=== PATIENT | male | born 1960 | race Caucasian/White ===

== ENCOUNTER → 2016-12-04 | Outpatient (CLI) | payer OTHER ==
[~2016-12-04] MED LIST: AZEL30SP NAE; DOSTINEX PO; FLUT0.0529 NAE; GABA-112 PO; HYCUDL5 PO; SNG10 PO
[2016-12-04 17:23] LABS: ALT/SGPT 46 U/L (12-78); AST/SGOT 26 U/L (15-37); BLOOD UREA NITROGEN 15 mg/dl (7-18); BUN/CREATININE RATIO 14.8 (10-20); CARBON DIOXIDE 29 mmol/L (21-32); CHLORIDE 104 mmol/L (98-107); GLUCOSE 90 mg/dl (70-99); POTASSIUM 4.3 mmol/L (3.5-5.1); SODIUM 140 mmol/L (136-145)
[2016-12-04 17:31] LABS: ALB/GLOB RATIO 1.2 (0.9-2); ALKALINE PHOSPHATASE 51 U/L (45-117); CHOLESTEROL 155 mg/dl (0-200); CHOLESTEROL/HDL RATIO 3.5; HDL CHOLESTEROL 44 mg/dl; LDL CHOLESTEROL CALCULATED 88 mg/dl; TRIGLYCERIDES 115 mg/dl (0-150); VERY LOW DENSITY LIPOPROT CALC 23 mg/dl
== END | disposition home or self-care (01) ==
LOC: C.LABBC 12:22
PROVIDERS: ATTEND Internal Medicine
DX: Z00.00 Encounter for general adult medical examination without abnormal findings (principal); D35.2 Benign neoplasm of pituitary gland; R73.9 Hyperglycemia, unspecified; E78.5 Hyperlipidemia, unspecified

== ENCOUNTER → 2017-01-10 | Outpatient (CLI) | payer OTHER ==
--- NOTE | 2017-01-10 10:10 | DIAGNOSTIC IMAGING REPORT ---
LUMBAR SPINE 5 VIEWS CLINICAL HISTORY: Low back pain of several months duration. FINDINGS: 5 views of the lumbar spine are correlated with abdominal CT dated 02/25/2011. The skeletal structures are well mineralized. There is no radiographic evidence of fracture or malalignment. Vertebral body height and alignment are maintained. Tiny anterior osteophytes are noted at L4-L5. The transverse and spinous processes are intact. There is no evidence of spondylolysis. The intervertebral disc spaces are well-maintained. The visualized bony pelvis appears intact. Enthesophytes arise from the anterior superior iliac spine bilaterally. There is a nonobstructed abdominal bowel gas pattern. Cholecystectomy clips are noted. IMPRESSION: Unremarkable radiographic evaluation of the lumbosacral spine. Electronically signed by: Ermias Nunn M.D. 01/10/2017 10:09 AM Dictated Date/Time: 01/10/2017 10:07 AM
== END | disposition home or self-care (01) ==
LOC: C.RADBC 09:40
PROVIDERS: ATTEND Internal Medicine
DX: M54.5 Low back pain (principal)

== ENCOUNTER → 2017-01-15 | Outpatient (CLI) | payer OTHER ==
--- NOTE | 2017-01-15 17:59 | DIAGNOSTIC IMAGING REPORT ---
MRI LUMBAR SPINE W/O CONTRAST CLINICAL HISTORY: R26.9 M54.5 M54.16 R29.2 M25.551 LOW BACK PAIN WITH RIGHT LEG RADICULOPATHY. TECHNIQUE: Sagittal and axial T1, T2 and STIR images were obtained. COMPARISON STUDY: Conventional radiographic study the lumbar spine dated 01/10/2017 OBSERVATIONS: The vertebral bodies and posterior elements appear intact. There is no abnormal bony signal present to suggest a marrow replacement process. L1-2: No disc protrusions or extrusions. No evidence of spinal canal or neural foraminal compromise. L2-3: No disc protrusions or extrusions. No evidence of spinal canal or neural foraminal compromise. L3-4: No disc protrusions or extrusions. No evidence of spinal canal or neural foraminal compromise. L4-5: No disc protrusions or extrusions. No evidence of spinal canal or neural foraminal compromise. L5-S1: There is a tiny broad-based central disc protrusion. There is no significant thecal sac distortion. There is no significant spinal or foraminal stenosis. The conus medullaris and cauda equina appear normal. There is an 11 mm right-sided Tarlov cyst at the S2 level. IMPRESSION: 1. Tiny broad-based central disc protrusion at the L5-S1 level. 2. 11 mm right-sided Tarlov cyst at the S2 level. Electronically signed by: Flo Dominique M.D. 01/15/2017 5:58 PM Dictated Date/Time: 01/15/2017 5:54 PM
== END | disposition home or self-care (01) ==
LOC: C.MRIBC 16:37
PROVIDERS: ATTEND Internal Medicine
DX: M51.27 Other intervertebral disc displacement, lumbosacral region (principal)

== ENCOUNTER → 2017-02-03 | Outpatient (CLI) | payer OTHER ==
[2017-02-03 18:07] LABS: CREATININE 0.93 mg/dl (0.60-1.40); URIC ACID 4.1 mg/dl (2.6-7.2)
[2017-02-03 18:13] LABS: PREALBUMIN 37.6 mg/dl (20-40)
[2017-02-03 18:31] LABS: LYME DISEASE AB IGG NEG (NEG); LYME DISEASE AB IGM NEG (NEG)
[2017-02-05 18:35] LABS: ALBUMIN 4.4 G/DL (3.8-4.8); LEAD BLOOD LESS THAN 1 MCG/DL (0-9); TOTAL PROTEIN 6.9 G/DL (6.2-8.3)
== END | disposition home or self-care (01) ==
LOC: C.LAB1850 17:00
PROVIDERS: ATTEND Psychiatry & Neurology Neurology
DX: G12.21 Amyotrophic lateral sclerosis (principal)

== ENCOUNTER 2017-02-08 03:18 | Emergency (ER) | payer OTHER ==
[~2017-02-08] VITALS: Ht 190.5 cm; Wt 85.0 kg
[~2017-02-08 03:18] MED LIST changes: -GABA-112 PO
[2017-02-08 03:26] VITALS: TEMP 36.7; Ht 190.5 cm; Wt 85.0 kg
[2017-02-08 03:36] VITALS: O2SAT 98
[2017-02-08] MEDS ORDERED: SODIUM CHLORIDE 0.9% 1000ML 1,000 ML IV STA (03:52)
[2017-02-08] MEDS ORDERED: LORAZEPAM INJ 0.5 MG in SYRINGE 0.25 ML IV STA (03:54)
[2017-02-08 04:01] LABS: BASO % 0.6 %; BASO ABS # 0.04 K/uL (0-0.2); COMPLETE YES; EOS % 1.3 %; HEMATOCRIT 38.4 % (42-52); IG% 0.1 %; LYMPH % 49.3 %; LYMPH ABS # 3.34 K/uL (1.2-3.4); MEAN CELL VOLUME 87.1 fL (80-100); MEAN CORPUSCULAR HEMOGLOBIN 31.3 pg (25-34); MEAN CORPUSCULAR HGB CONC 35.9 g/dl (32-36); MEAN PLATELET VOLUME 9.2 fL (7.4-10.4); MONO % 7.1 %; NEUT % 41.6 %; PLATELET COUNT 248 K/uL (130-400); RED BLOOD COUNT 4.41 M/uL (4.7-6.1); WHITE BLOOD COUNT 6.77 K/uL (4.8-10.8)
[2017-02-08] MEDS ORDERED: LORAZEPAM 2 MG/ML 1 ML VIAL ONE (04:05)
[2017-02-08 04:27] LABS: CALCIUM 8.9 mg/dl (8.5-10.1); MAGNESIUM 2.1 mg/dl (1.8-2.4); POTASSIUM 3.7 mmol/L (3.5-5.1)
[2017-02-08 04:38] LABS: ALB/GLOB RATIO 1.1 (0.9-2); CKMB/CK RATIO 2.4 (0-3.0); THYROID STIMULATING HORMONE 1.05 uIu/ml (0.300-4.500)
--- NOTE | 2017-02-08 05:21 | EMERGENCY ROOM VISIT NOTE ---
History First contact with patient: 03:39 Chief Complaint: OTHER COMPLAINT Stated Complaint: DRUG INTERACTION History of Present Illness The patient is a 56 year old male who presents to the Emergency Department by private vehicle with his for evaluation of a possible drug interaction. He reports that he has been recently placed on multiple different medications as he was diagnosed with ALS 10 days ago. He has been placed on gabapentin most recently. He has been using the medication with minimal relief of symptoms. The patient admits to using cannabis oil this evening at approximately 10 PM. He reports that he ate a small amount on a cracker. He has felt restless as well as a dry mouth and anxious since taking the cannabis. He reports no history of drug abuse in the past. He is never used marijuana previously. He denies the pain. He rates his current discomfort as 0/10. He denies any headaches, chest pain, palpitations, short of breath with nausea, vomiting, or abdominal pain. He denies any other substance use. Review of Systems A complete 10-point Review of Systems was discussed with the patient, with pertinent positives and negatives listed in the History of Present Illness. All remaining Review of Systems questions can be considered negative unless otherwise specified. Past Medical/Surgical History Surgical Problems: (1) Hx of appendectomy Family History Family history was reviewed; no changes noted. Social History Smoking Status: Never Smoker Smokeless Tobacco Use: No Alcohol Use: none Drug Use: none Marital Status: Occupation Status: employed Current/Historical Medications Scheduled Gabapentin (Neurontin), 100 MG PO HS [Dostinex], 0.25 MG PO 2XWK Allergies Coded Allergies: No Known Allergies (Unverified , 10/01/04) Physical Exam Vital Signs Date Time Temp Pulse Resp B/P Pulse Ox O2 Delivery O2 Flow Rate FiO2 02/08/17 05:30 68 19 132/87 96 02/08/17 05:00 137/88 02/08/17 04:30 142/95 02/08/17 04:18 62 13 94 02/08/17 04:07 138/92 02/08/17 03:43 63 02/08/17 03:36 98 Room Air 02/08/17 03:26 36.7 77 18 144/89 93 Room Air Pain Rating (0-10): 0 Physical Exam VITAL SIGNS - Vital signs and nursing notes were reviewed. GENERAL - 56-year-old male appearing his stated age who is in no acute distress. Communicates well with provider and answers questions appropriately. HEAD - NC/AT. EYES - PERRL with EOMI bilaterally. Sclera anicteric. Palpebral conjunctiva pink and moist with no injection noted. EARS - No deformities of external structures noted on gross examination bilaterally. No pain elicited with palpation of the tragus bilaterally. External auditory canals without discharge or otorrhea. Tympanic membranes pearly munoz without retraction or bulging. NOSE - Midline and without cyanosis. No epistaxis or purulent drainage noted. Septum midline without deviation or septal hematoma noted. MOUTH/OROPHARYNX - Without perioral cyanosis. Buccal mucosa pink and moist and without leukoplakia. Tongue midline with equal elevation of palate bilaterally. No tonsillar hypertrophy, erythema, or exudates noted. Good dentition noted. NECK - Neck with FROM. Supple to palpation. LUNGS - Chest wall symmetric without accessory muscle use, intercostals retractions, or central cyanosis. Normal vesicular breath sounds CTA B/L. No wheezes, rales, or rhonchi appreciated. CARDIAC - RRR with S1/S2. No murmur, rubs, or gallops appreciated. No reproducible tenderness to palpation appreciated over the anterior chest wall. ABDOMEN - Abdominal contour flat and without pulsations or visible masses. BS normoactive all four quadrants. No tenderness, palpable masses, hepatosplenomegaly, or ascites noted. EXTREMITIES - No clubbing or peripheral cyanosis. No pretibial edema present. NEUROLOGIC - Cranial nerves II through XII grossly intact. Sensory intact to light touch throughout. PSYCH - A&Ox3 and cooperates fully with examiner. Pt is very pleasant and interacts well with examiner. Medical Decision & Procedures ER Provider Diagnostic Interpretation: Chest x-ray was obtained and reviewed by myself and my attending physician. No acute cardiopulmonary processes appreciated per my interpretation. Radiologist' s impression unavailable at the time of dictation. Laboratory Results 02/08/17 03:42 Red Blood Count 4.41, Mean Corpuscular Volume 87.1, Mean Corpuscular Hemoglobin 31.3, Mean Corpuscular Hemoglobin Concent 35.9, Mean Platelet Volume 9.2, Neutrophils (%) (Auto) 41.6, Lymphocytes (%) (Auto) 49.3, Monocytes (%) (Auto) 7.1, Eosinophils (%) (Auto) 1.3, Basophils (%) (Auto) 0.6, Neutrophils # (Auto) 2.81, Lymphocytes # (Auto) 3.34, Monocytes # (Auto) 0.48, Eosinophils # (Auto) 0.09, Basophils # (Auto) 0.04 02/08/17 03:42 Test 02/08/17 03:42 02/08/17 03:56 White Blood Count 6.77 K/uL (4.8-10.8) Red Blood Count 4.41 M/uL (4.7-6.1) Hemoglobin 13.8 g/dL (14.0-18.0) Hematocrit 38.4 % (42-52) Mean Corpuscular Volume 87.1 fL (80-100) Mean Corpuscular Hemoglobin 31.3 pg (25-34) Mean Corpuscular Hemoglobin Concent 35.9 g/dl (32-36) Platelet Count 248 K/uL (130-400) Mean Platelet Volume 9.2 fL (7.4-10.4) Neutrophils (%) (Auto) 41.6 % Lymphocytes (%) (Auto) 49.3 % Monocytes (%) (Auto) 7.1 % Eosinophils (%) (Auto) 1.3 % Basophils (%) (Auto) 0.6 % Neutrophils # (Auto) 2.81 K/uL (1.4-6.5) Lymphocytes # (Auto) 3.34 K/uL (1.2-3.4) Monocytes # (Auto) 0.48 K/uL (0.11-0.59) Eosinophils # (Auto) 0.09 K/uL (0-0.5) Basophils # (Auto) 0.04 K/uL (0-0.2) RDW Standard Deviation 40.4 fL (36.4-46.3) RDW Coefficient of Variation 12.5 % (11.5-14.5) Immature Granulocyte % (Auto) 0.1 % Immature Granulocyte # (Auto) 0.01 K/uL (0.00-0.02) Anion Gap 7.0 mmol/L (3-11) Est Creatinine Clear Calc Drug Dose 98.6 ml/min Estimated GFR () 97.1 Estimated GFR (Non- 83.8 BUN/Creatinine Ratio 14.0 (10-20) Calcium Level 8.9 mg/dl (8.5-10.1) Magnesium Level 2.1 mg/dl (1.8-2.4) Total Bilirubin 0.3 mg/dl (0.2-1) Aspartate Amino Transf (AST/SGOT) 8 U/L (15-37) Alanine Aminotransferase (ALT/SGPT) 32 U/L (12-78) Alkaline Phosphatase 53 U/L (45-117) Total Creatine Kinase 143 U/L (39-308) Creatine Kinase MB 3.5 ng/ml (0.5-3.6) Creatine Kinase MB Ratio 2.4 (0-3.0) Total Protein 6.7 gm/dl (6.4-8.2) Albumin 3.5 gm/dl (3.4-5.0) Globulin 3.2 gm/dl (2.5-4.0) Albumin/Globulin Ratio 1.1 (0.9-2) Thyroid Stimulating Hormone (TSH) 1.050 uIu/ml (0.300-4.500) Bedside Troponin I 0.000 ng/ml (0-0.045) Medications Administered Medications (Trade) Dose Ordered Sig/Anat Route Start Time Stop Time Status Last Admin Dose Admin Sodium Chloride 1,000 ml @ 999 mls/hr Q1H1M STAT IV 02/08/17 03:52 02/08/17 04:52 DC 02/08/17 04:02 999 MLS/HR Lorazepam/Syringe (Ativan Inj/ Syringe) 0.5 ml @ 0.5 mls/min NOW STAT IV 02/08/17 03:54 02/08/17 03:55 DC 02/08/17 04:02 0.5 MLS/MIN Procedure Patient was placed on the cardiac care unit nurse and monitored throughout the entire extent of their stay. In addition, the patient's pulse oximetry was monitored throughout the entire stay. Any abnormalities or aberrancies were addressed appropriately. ECG Indication: toxicologic Rate (beats per minute): 61 Rhythm: normal sinus Findings: no acute ischemic change, no ectopy Comparison ECG Date: no prior available ED Course Patient was seen and evaluated by myself. Labs were drawn, saline lock in place. The patient was hydrated with a 1000 mL normal saline bolus. He received 0.5 mg Ativan intravenously. EKG and chest x-rays were obtained. Laboratory results demonstrate no acute leukocytosis, worrisome anemia, or bandemia. The patient has no significant electrolyte abnormalities. Cardiac enzymes were negative. Troponin was negative. Case was reviewed with my attending physician who agrees with diagnostic approach and treatment plan. Laboratory results and imaging studies were reviewed with the patient who acknowledges understanding. He feels much better at this time. He was educated on worrisome symptoms for return visit to the emergency department. Patient discharged home in good condition. Medical Decision Given the patient's presentation and stated complaints, I did elect to perform the above-mentioned workup. The patient presents complaining of dry mouth as well as hallucinating. He admits to using cannabis well. This is the first time he is use the medication. He is using it for his new diagnosis of ALS. He is not used any other drugs previously. His exam is otherwise unremarkable. His EKG and cardiac evaluation as well as labs suggest no other acute findings. He responded well to IV fluids as well as IV Ativan. Patient has complete resolve of symptoms at this point. Patient will continue to follow with his specialists from today's visit. He will return for any changing or worsening symptoms. Patient discharged home afebrile and in good condition. In the evaluation and treatment of this patient, the following differential diagnoses were considered: Hypoglycemia, Barbiturate Toxicity, Benzodiazepine Toxicity, Depression and Suicidality, Diabetic Ketoacidosis, Encephalitis, Ethylene Glycol Toxicity, Meningitis, Metabolic Acidosis, Opioid Toxicity, CVA, TIA, Intracranial Abnormality, Acute Psychosis, Amongst Others. Impression Primary Impression: Adverse effect of substance Departure Information Dispostion Home / Self-Care Condition GOOD Referrals Pro,Jorge Warner M.D. (PCP) Patient Instructions My [facility] Additional Instructions You have been seen in the emergency department today for your adverse reaction to a substance. Drink plenty of fluids and stay well-hydrated. Continue to follow with your primary care provider and specialists. Return for any changing or worsening symptoms.
[2017-02-08 05:30] VITALS: BP 132/87; PULSE 68; O2SAT 96
[2017-02-08] MEDS ORDERED: GABA-112 PO (05:30)
--- NOTE | 2017-02-08 08:22 | DIAGNOSTIC IMAGING REPORT ---
CHEST ONE VIEW PORTABLE CLINICAL HISTORY: weakness COMPARISON STUDY: 09/27/2013 FINDINGS: The heart is at the upper limits of normal in size. There is no overt failure. There is no lobar consolidation. Slight prominence the right basal markings are likely atelectatic. There are no pleural effusions.[ IMPRESSION: AP portable study. Minor right basilar atelectasis. No evidence of lobar consolidation Electronically signed by: Flo Dominique M.D. 02/08/2017 8:21 AM Dictated Date/Time: 02/08/2017 8:20 AM
== END 2017-02-08 05:30 | disposition home or self-care (01) ==
LOC: C.EDB 03:19 → C.EDA 05:30
DX: T88.7XXA Unspecified adverse effect of drug or medicament, initial encounter (principal); T40.7X5A Adverse effect of cannabis (derivatives), initial encounter; X58.XXXA Exposure to other specified factors, initial encounter; G12.21 Amyotrophic lateral sclerosis

== ENCOUNTER → 2017-04-23 | Outpatient (CLI) | payer OTHER ==
[~2017-04-23] MED LIST changes: -AZEL30SP NAE; -FLUT0.0529 NAE; +GABA-112 PO; -HYCUDL5 PO; -SNG10 PO
[2017-04-23 16:51] LABS: BASO % 0.5 %; BASO ABS # 0.04 K/uL (0-0.2); COMPLETE YES; EOS % 1.8 %; HEMATOCRIT 43.8 % (42-52); IG% 0.1 %; LYMPH % 25.7 %; LYMPH ABS # 2.23 K/uL (1.2-3.4); MEAN CELL VOLUME 87.8 fL (80-100); MEAN CORPUSCULAR HEMOGLOBIN 30.9 pg (25-34); MEAN CORPUSCULAR HGB CONC 35.2 g/dl (32-36); MEAN PLATELET VOLUME 9.6 fL (7.4-10.4); MONO % 7.3 %; NEUT % 64.6 %; PLATELET COUNT 275 K/uL (130-400); RED BLOOD COUNT 4.99 M/uL (4.7-6.1); WHITE BLOOD COUNT 8.68 K/uL (4.8-10.8)
== END | disposition home or self-care (01) ==
LOC: C.LABBC 14:47
PROVIDERS: ATTEND Psychiatry & Neurology Clinical Neurophysiology
DX: G12.21 Amyotrophic lateral sclerosis (principal); Z79.899 Other long term (current) drug therapy; D35.2 Benign neoplasm of pituitary gland; E29.1 Testicular hypofunction

== ENCOUNTER → 2017-06-23 | Outpatient (CLI) | payer OTHER ==
[2017-06-23 16:42] LABS: BASO % 0.5 %; BASO ABS # 0.03 K/uL (0-0.2); COMPLETE YES; IG% 0.3 %; LYMPH % 37.4 %; LYMPH ABS # 2.44 K/uL (1.2-3.4); MEAN CELL VOLUME 87.3 fL (80-100); MEAN CORPUSCULAR HEMOGLOBIN 29.6 pg (25-34); MEAN CORPUSCULAR HGB CONC 33.9 g/dl (32-36); MEAN PLATELET VOLUME 9.9 fL (7.4-10.4); MONO % 6.9 %; NEUT % 52.9 %; PLATELET COUNT 258 K/uL (130-400); RED BLOOD COUNT 5.04 M/uL (4.7-6.1); WHITE BLOOD COUNT 6.52 K/uL (4.8-10.8)
== END | disposition home or self-care (01) ==
LOC: C.LABBC 13:17
PROVIDERS: ATTEND Psychiatry & Neurology Clinical Neurophysiology
DX: G12.21 Amyotrophic lateral sclerosis (principal); Z79.899 Other long term (current) drug therapy

== ENCOUNTER → 2017-11-07 | Outpatient (CLI) | payer OTHER | END | disposition home or self-care (01) | LOC: C.LABBC 10:56 | PROVIDERS: ATTEND Internal Medicine | DX: E29.1 Testicular hypofunction (principal) ==